=== PATIENT | male | born 1995 | race African-American/Black ===

== ENCOUNTER 2018-02-11 10:38 | Emergency (ER) | payer OTHER ==
[~2018-02-11] VITALS: Ht 198.1 cm; Wt 81.6 kg
--- NOTE | 2018-02-11 12:18 | RADIOLOGY REPORT ---
EXAMINATION: XR FOOT, LEFT CLINICAL INFORMATION: Left great toe pain. Presumptive diagnosis of fracture or gout. COMPARISON: None TECHNIQUE: 3 views of the left foot. FINDINGS: Alignment is normal. The joint spaces are normal. No arthritic deformity, fracture or subluxation. Soft tissues are grossly unremarkable. No soft tissue tophaceous deposits. IMPRESSION: Normal left foot.
[2018-02-11 12:29] VITALS: BP 120/74
[2018-02-11] MEDS ORDERED: IBUPROFEN800 M1 PO (12:32)
--- NOTE | 2018-02-11 12:33 | ED ANKLE/FOOT INJURY COMPLAINT ---
History of Present Illness General Chief Complaint: Foot or Ankle Injury Stated Complaint: GREAT TOE PAIN Source: patient Exam Limitations: no limitations Vital Signs & Intake/Output Vital Signs & Intake/Output Vital Signs Date Time Temp Pulse Resp B/P B/P Pulse O2 O2 Flow FiO2 Mean Ox Delivery Rate 02/11 1229 98.1 78 18 120/74 98 Room Air 02/11 1228 98 Room Air 02/11 1043 97.0 80 20 116/68 98 Room Air ED Intake and Output 02/12 0000 02/11 1200 Intake Total 0 Output Total Balance 0 Intake, Oral 0 Patient 180 lb Weight Weight Reported by Patient Measurement Method Allergies Coded Allergies: No Known Allergies (02/11/18) Reconcile Medications Ibuprofen 800 MG TABLET 1 TAB PO TID PRN PAIN Triage Note: PT TO ED C/O LEFT GREAT TOE PAIN X A FEW DAYS. HAS NOT TRIED OTC MEDS. UNSURE OF ANY INJURY. DECLINING MEDS IN TRIAGE. Triage Nurses Notes Reviewed? yes Occurred: yesterday Duration: day(s): (2), constant, continues in ED, getting worse Timing: single episode today HPI: 22-year-old male with no medical history presents for evaluation of right foot pain. Patient reports 2 days ago he dropped a heavy object onto his foot. He reports pain located mostly at the base of the right great toe. No numbness or tingling no ankle pain. Patient states the pain is worse with walking and weightbearing. He does not take any medicine for his symptoms. Past History Travel History Traveled to [place] past 21 day No Medical History Any Pertinent Medical History? see below for history Surgical History Surgical History: non-contributory Psychosocial History What is your primary language Norwegian Tobacco Use: Never used ETOH Use: denies use Illicit Drug Use: marijuana Family History Hx Contributory? No Review of Systems Review of Systems Constitutional: Reports: no symptoms. EENTM: Reports: no symptoms. Respiratory: Reports: no symptoms. Cardiovascular: Reports: no symptoms. GI: Reports: no symptoms. Genitourinary: Reports: no symptoms. Musculoskeletal: Reports: joint pain, joint swelling. Skin: Reports: no symptoms. Neurological/Psychological: Reports: no symptoms. Hematologic/Endocrine: Reports: no symptoms. Immunologic/Allergic: Reports: no symptoms. All Other Systems: Reviewed and Negative Physical Exam Physical Exam General Appearance: well developed/nourished, no apparent distress, alert, awake Head: atraumatic, normal appearance Eyes: Bilateral: normal appearance, EOMI. Ears, Nose, Throat: hearing grossly normal Neck: normal inspection, supple, full range of motion Cardiovascular/Respiratory: no respiratory distress Back: normal inspection, normal range of motion Leg/Knee/Thigh Left: normal range of motion, normal inspection Leg/Knee/Thigh Right: normal range of motion, normal inspection Ankle Left: normal inspection, normal range of motion Ankle Right: normal inspection, normal range of motion Foot Left: normal inspection, normal range of motion, there is tenderness palpation over the first metatarsal. No bruising swelling or abrasions will range motion intact patient is able to walk and bear weight neurovascular supply intact Foot Right: normal inspection, normal range of motion Neuro/Vascular: normal motor function, normal sensation Tendon: normal tendon function Psychiatric: awake, alert, oriented x 3 Skin: intact, normal color, warm/dry Progress Differential Diagnosis: cellulitis, septic arthritis, fracture, dislocation, sprain, contusion Plan of Care: Patient is here for dropping a heavy object on his left foot. No clinical signs of trauma on exam. X-ray was obtained is negative for fracture. Adrian wrap applied to provide rest ice elevation compression. Tylenol Profen for pain. Walk with crutches. Discussed return precautions patient agrees the plan. Diagnostic Imaging: Viewed by Me: Radiology Read. Discussed w/RAD: Radiology Read. Radiology Impression: PATIENT: GENARO CALDERÓN PRESENT AGE: 22 PATIENT ACCOUNT NO: [id number] : 95 LOCATION: [facility] ORDERING PHYSICIAN: Igor GRIFFITHS SERVICE DATE: 02/11/18 EXAM TYPE: RAD - XRY-FOOT COMPLETE, LEFT EXAMINATION: XR FOOT, LEFT CLINICAL INFORMATION: Left great toe pain. Presumptive diagnosis of fracture or gout. COMPARISON: None TECHNIQUE: 3 views of the left foot. FINDINGS: Alignment is normal. The joint spaces are normal. No arthritic deformity, fracture or subluxation. Soft tissues are grossly unremarkable. No soft tissue tophaceous deposits. IMPRESSION: Normal left foot. DICTATED BY: Candelario Gruber MD DATE/TIME DICTATED:02/11/181212 DIRECTOR OF RETAIL MARKETING:PATRICK DATE/TIME TRANSCRIBED:02/11/181212 CONFIDENTIAL, DO NOT COPY WITHOUT APPROPRIATE AUTHORIZATION. <Electronically signed in Other Vendor System> Departure Departure Disposition: HOME OR SELF CARE Condition: Stable Clinical Impression Primary Impression: Foot sprain Qualifiers: Encounter type: initial encounter Laterality: left Qualified Code: S93.602A - Unspecified sprain of left foot, initial encounter Referrals: Hiren GARCES,Arley Carlos (PCP/Family) Additional Instructions: Rest, keep your leg elevated wear Adrian wrap. Walk with crutches. Use ibuprofen 800 mg every 8 hours with food as needed for pain. Apply ice for 15-20 minutes every few hours. Make a follow-up with your primary care doctor for recheck in a few days return sooner with any concerns. Please go over all results of today's visit with your primary care doctor. Contact your primary care doctor to let them know you were here in the emergency room. There may be nonspecific findings which may not be related to your visit today here in the emergency room but may require further evaluation and chronic monitoring by your primary care doctor. If you had a laceration today the chance of foreign body always remains. You should follow-up with your primary care doctor for recheck in 3-5 days for a wound check. If you had an x-ray done there is a chance that a fracture could have been missed on initial read and you should follow-up with your primary care doctor for repeat x-rays if symptoms persist. If your blood pressure was elevated here in the emergency room please have rechecked by her primary care doctor within the next 48 hours by your primary care doctor. If you were prescribed a narcotic here in the emergency room or any type of controlled substances you're not allowed to drive while taking this medication or operate any type of heavy machinery. Narcotics can make you feel lightheaded dizziness nausea and can cause constipation. You may need to picking table worker a stool softener. Thank you for choosing [facility] emergency room. Please return to the emergency room immediately if you have any other concerns worsening of symptoms. Departure Forms: Customer Survey General Discharge Information Prescriptions: Current Visit Scripts Ibuprofen 1 TAB PO TID PRN PAIN #30 TAB
== END 2018-02-11 12:34 ==
LOC: ERH 10:38
DX: S93.602A Unspecified sprain of left foot, initial encounter (principal); W20.8XXA Other cause of strike by thrown, projected or falling object, initial encounter; Y92.9 Unspecified place or not applicable; Y93.9 Activity, unspecified; F12.10 Cannabis abuse, uncomplicated
CPT/HCPCS: 73630-LT